=== PATIENT | female | born 1960 | race Caucasian/White ===

== ENCOUNTER 2020-04-30 20:47 | Inpatient (IN) | payer BC, MEDICARE ==
[2020-04-30] MEDS ORDERED: SODIUM CHLORIDE 0.9% 1,000 ML IV STA ×2 (20:49→21:15)
[2020-04-30] MEDS ORDERED: ATROPINE SULFATE 0.1 MG/ML 10ML SYRINGE IV STA (20:50)
--- NOTE | 2020-04-30 20:58 | ED ---
Weakness HPI - General Chief complaint: Recheck/Abnormal Lab/Rx Stated complaint: Low BP, lethargic Time Seen by Provider: 04/30/20 20:48 Source: patient, family, RN notes reviewed, old records reviewed Mode of arrival: ambulatory Limitations: no limitations - History of Present Illness MD Complaint: generalized weakness (lowBP, LowHR), lack of energy -: days(s) Location: generalized Severity: moderate Quality: constant Consistency: constant Improves with: none Worsens with: none Context: history of similar Associated Symptoms: denies other symptoms - Related Data Allergies Allergy/AdvReac Type Severity Reaction Status Date / Time No Known Allergies Allergy Verified 04/30/20 20:53 Review of Systems ROS Statement: Those systems with pertinent positive or pertinent negative responses have been documented in the HPI. ROS Other: All systems not noted in ROS Statement are negative. Past Medical History Additional Past Medical History / Comment(s): low blood pressure History of Any Multi-Drug Resistant Organisms: None Reported Past Surgical History: Adenoidectomy, Tonsillectomy Past Psychological History: Anxiety Smoking Status: Former smoker Past Alcohol Use History: Occasional Past Drug Use History: None Reported General Exam Limitations: no limitations General appearance: alert, in no apparent distress Head exam: Present: atraumatic, normocephalic, normal inspection Eye exam: Present: normal appearance, PERRL, EOMI. Absent: scleral icterus, conjunctival injection, periorbital swelling ENT exam: Present: normal exam, mucous membranes moist Neck exam: Present: normal inspection. Absent: tenderness, meningismus, lymphadenopathy Respiratory exam: Present: normal lung sounds bilaterally. Absent: respiratory distress, wheezes, rales, rhonchi, stridor Cardiovascular Exam: Present: normal rhythm, bradycardia, normal heart sounds. Absent: systolic murmur, diastolic murmur, rubs, gallop, clicks GI/Abdominal exam: Present: soft, normal bowel sounds. Absent: distended, tenderness, guarding, rebound, rigid Extremities exam: Present: normal inspection, full ROM, normal capillary refill. Absent: tenderness, pedal edema, joint swelling, calf tenderness Back exam: Present: normal inspection Neurological exam: Present: alert, oriented X3, CN II-XII intact Psychiatric exam: Present: normal affect, normal mood Skin exam: Present: warm, dry, intact, normal color. Absent: rash Course Vital Signs 04/30/20 04/30/20 04/30/20 20:48 21:23 21:24 Temperature 98 F Pulse Rate 56 L Pulse Rate [ 55 L 56 L Pulse Oximetery ] Respiratory 20 18 18 Rate Blood Pressure 113/73 Blood Pressure 112/75 [Left Arm Sitting] Blood Pressure [Left Arm Standing] Blood Pressure 108/65 [Left Arm Supine] O2 Sat by Pulse 98 99 99 Oximetry 04/30/20 04/30/20 04/30/20 21:26 21:50 21:57 Temperature Pulse Rate 56 L Pulse Rate [ 54 L 57 L Pulse Oximetery ] Respiratory 18 18 Rate Blood Pressure 113/73 Blood Pressure [Left Arm Sitting] Blood Pressure 111/73 [Left Arm Standing] Blood Pressure [Left Arm Supine] O2 Sat by Pulse 99 100 Oximetry EKG Findings - EKG Comments: EKG Findings:: EKG shows sinus bradycardia 54 CA 160 QRS 76 QTc 450 Medical Decision Making - Lab Data Result diagrams: 04/30/20 21:06 04/30/20 21:06 Lab Results 04/30/20 04/30/20 04/30/20 Range/Units 21:06 21:06 21:06 WBC 7.2 (3.8-10.6) k/uL RBC 4.33 (3.80-5.40) m/uL Hgb 13.3 (11.4-16.0) gm/dL Hct 41.8 (34.0-46.0) % MCV 96.6 (80.0-100.0) fL MCH 30.9 (25.0-35.0) pg MCHC 31.9 (31.0-37.0) g/dL RDW 12.8 (11.5-15.5) % Plt Count 242 (150-450) k/uL Neutrophils % 49 % Lymphocytes % 39 % Monocytes % 7 % Eosinophils % 2 % Basophils % 1 % Neutrophils # 3.5 (1.3-7.7) k/uL Lymphocytes # 2.8 (1.0-4.8) k/uL Monocytes # 0.5 (0-1.0) k/uL Eosinophils # 0.2 (0-0.7) k/uL Basophils # 0.1 (0-0.2) k/uL PT 10.2 (9.0-12.0) sec INR 1.0 (<1.2) APTT 19.6 L (22.0-30.0) sec D-Dimer (<0.60) mg/L FEU Sodium 137 (137-145) mmol/L Potassium 4.7 (3.5-5.1) mmol/L Chloride 107 (98-107) mmol/L Carbon Dioxide 20 L (22-30) mmol/L Anion Gap 10 mmol/L BUN 16 (7-17) mg/dL Creatinine 0.96 (0.52-1.04) mg/dL Est GFR (CKD-EPI)AfAm 74 (>60 ml/min/1.73 sqM) Est GFR (CKD-EPI)NonAf 64 (>60 ml/min/1.73 sqM) Glucose 72 L (74-99) mg/dL Plasma Lactic Acid Galileo (0.7-2.0) mmol/L Calcium 9.6 (8.4-10.2) mg/dL Phosphorus 4.8 H (2.5-4.5) mg/dL Magnesium 2.1 (1.6-2.3) mg/dL Total Bilirubin 0.4 (0.2-1.3) mg/dL AST 30 (14-36) U/L ALT 12 (4-34) U/L Alkaline Phosphatase 166 H (38-126) U/L Creatine Kinase 103 (30-135) U/L CK-MB (CK-2) (0.0-2.4) ng/mL Troponin I (0.000-0.034) ng/mL NT-Pro-B Natriuret Pep pg/mL Total Protein 7.2 (6.3-8.2) g/dL Albumin 4.4 (3.5-5.0) g/dL TSH 3.120 (0.465-4.680) mIU/L 04/30/20 04/30/20 04/30/20 Range/Units 21:06 21:06 21:06 WBC (3.8-10.6) k/uL RBC (3.80-5.40) m/uL Hgb (11.4-16.0) gm/dL Hct (34.0-46.0) % MCV (80.0-100.0) fL MCH (25.0-35.0) pg MCHC (31.0-37.0) g/dL RDW (11.5-15.5) % Plt Count (150-450) k/uL Neutrophils % % Lymphocytes % % Monocytes % % Eosinophils % % Basophils % % Neutrophils # (1.3-7.7) k/uL Lymphocytes # (1.0-4.8) k/uL Monocytes # (0-1.0) k/uL Eosinophils # (0-0.7) k/uL Basophils # (0-0.2) k/uL PT (9.0-12.0) sec INR (<1.2) APTT (22.0-30.0) sec D-Dimer (<0.60) mg/L FEU Sodium (137-145) mmol/L Potassium (3.5-5.1) mmol/L Chloride (98-107) mmol/L Carbon Dioxide (22-30) mmol/L Anion Gap mmol/L BUN (7-17) mg/dL Creatinine (0.52-1.04) mg/dL Est GFR (CKD-EPI)AfAm (>60 ml/min/1.73 sqM) Est GFR (CKD-EPI)NonAf (>60 ml/min/1.73 sqM) Glucose (74-99) mg/dL Plasma Lactic Acid Galileo 1.2 (0.7-2.0) mmol/L Calcium (8.4-10.2) mg/dL Phosphorus (2.5-4.5) mg/dL Magnesium (1.6-2.3) mg/dL Total Bilirubin (0.2-1.3) mg/dL AST (14-36) U/L ALT (4-34) U/L Alkaline Phosphatase (38-126) U/L Creatine Kinase (30-135) U/L CK-MB (CK-2) 0.9 (0.0-2.4) ng/mL Troponin I <0.012 (0.000-0.034) ng/mL NT-Pro-B Natriuret Pep 125 pg/mL Total Protein (6.3-8.2) g/dL Albumin (3.5-5.0) g/dL TSH (0.465-4.680) mIU/L 04/30/20 Range/Units 21:06 WBC (3.8-10.6) k/uL RBC (3.80-5.40) m/uL Hgb (11.4-16.0) gm/dL Hct (34.0-46.0) % MCV (80.0-100.0) fL MCH (25.0-35.0) pg MCHC (31.0-37.0) g/dL RDW (11.5-15.5) % Plt Count (150-450) k/uL Neutrophils % % Lymphocytes % % Monocytes % % Eosinophils % % Basophils % % Neutrophils # (1.3-7.7) k/uL Lymphocytes # (1.0-4.8) k/uL Monocytes # (0-1.0) k/uL Eosinophils # (0-0.7) k/uL Basophils # (0-0.2) k/uL PT (9.0-12.0) sec INR (<1.2) APTT (22.0-30.0) sec D-Dimer 0.93 H (<0.60) mg/L FEU Sodium (137-145) mmol/L Potassium (3.5-5.1) mmol/L Chloride (98-107) mmol/L Carbon Dioxide (22-30) mmol/L Anion Gap mmol/L BUN (7-17) mg/dL Creatinine (0.52-1.04) mg/dL Est GFR (CKD-EPI)AfAm (>60 ml/min/1.73 sqM) Est GFR (CKD-EPI)NonAf (>60 ml/min/1.73 sqM) Glucose (74-99) mg/dL Plasma Lactic Acid Galileo (0.7-2.0) mmol/L Calcium (8.4-10.2) mg/dL Phosphorus (2.5-4.5) mg/dL Magnesium (1.6-2.3) mg/dL Total Bilirubin (0.2-1.3) mg/dL AST (14-36) U/L ALT (4-34) U/L Alkaline Phosphatase (38-126) U/L Creatine Kinase (30-135) U/L CK-MB (CK-2) (0.0-2.4) ng/mL Troponin I (0.000-0.034) ng/mL NT-Pro-B Natriuret Pep pg/mL Total Protein (6.3-8.2) g/dL Albumin (3.5-5.0) g/dL TSH (0.465-4.680) mIU/L Disposition Clinical Impression: Bradycardia Disposition: HOME SELF-CARE Condition: Good Instructions (If sedation given, give patient instructions): Bradycardia (ED) Is patient prescribed a controlled substance at d/c from ED?: No Referrals: Efren Belle MD [Primary Care Provider] - 1-2 days
[2020-04-30 21:27] LABS: Basophils # (A) 0.1 k/uL (0-0.2); Basophils % (A) 1 %; Eosinophils # (A) 0.2 k/uL (0-0.7); Eosinophils % (A) 2 %; HCT 41.8 % (34.0-46.0); HGB 13.3 gm/dL (11.4-16.0); Lymphocytes # (A) 2.8 k/uL (1.0-4.8); Lymphocytes % (A) 39 %; MCH 30.9 pg (25.0-35.0); MCHC 31.9 g/dL (31.0-37.0); MCV 96.6 fL (80.0-100.0); Mean Platelet Volume 7.8; Monocytes # (A) 0.5 k/uL (0-1.0); Monocytes % (A) 7 %; Neutrophils # (A) 3.5 k/uL (1.3-7.7); Neutrophils % (A) 49 %; Platelet Count 242 k/uL (150-450); RBC 4.33 m/uL (3.80-5.40); RDW 12.8 % (11.5-15.5); WBC 7.2 k/uL (3.8-10.6)
[2020-04-30 21:37] LABS: Prothrombin Time 10.2 sec (9.0-12.0)
[2020-04-30 21:47] LABS: Partial Thromboplastin Time 19.6 sec (22.0-30.0)
--- NOTE | 2020-04-30 21:47 | XR ---
EXAMINATION TYPE: XR chest 1V portable DATE OF EXAM: 04/30/2020 COMPARISON: NONE HISTORY: Weakness TECHNIQUE: FINDINGS: There is no heart failure nor confluent pneumonic infiltrate. Costophrenic angles are clear . There are chest leads. There is cervical spine fusion surgery. IMPRESSION: No active cardiopulmonary disease.
[2020-04-30 21:53] LABS: Albumin 4.4 g/dL (3.5-5.0); Calcium 9.6 mg/dL (8.4-10.2); Magnesium 2.1 mg/dL (1.6-2.3); Phosphorus 4.8 mg/dL (2.5-4.5); Potassium 4.7 mmol/L (3.5-5.1); Total Bilirubin 0.4 mg/dL (0.2-1.3); Total Protein 7.2 g/dL (6.3-8.2)
[2020-04-30 22:10] LABS: Creatine Kinase MB 0.9 ng/mL (0.0-2.4); Troponin I <0.012 ng/mL (0.000-0.034)
--- NOTE | 2020-04-30 23:13 | CT ---
EXAMINATION TYPE: CT angio chest DATE OF EXAM: 04/30/2020 COMPARISON: None HISTORY: elevated d-dimer Chest pain CT DLP: 484 mGycm Automated exposure control for dose reduction was used. CONTRAST: Performed with IV Contrast, patient injected with 78cc mL of Isovue 370. There are 3-D post processed images. FINDINGS: There is minimal subsegmental atelectasis in the posterior lung connolly. There is no pericardial effus ion. There is no pleural effusion. There is previous surgery at the gastric fundus. There is hiatal hernia. There are no hilar masses. There is no mediastinal adenopathy. Thoracic aorta is intact. There is no aneurysm or dissection. There are no filling defects in the pulmonary arteries. Thoracic spine is intact. IMPRESSION: No evidence of pulmonary embolism. Mild subsegmental atelectasis at the lung bases. Paraesophageal hiatal hernia. Previous gastric surgery.
[2020-04-30] MEDS ORDERED: NITROGLYCERIN SL TABS 0.4 MG TAB SUBLINGUAL PRN (23:42)
[2020-05-01] MEDS: SODIUM CHLORIDE 0.9% 1,000 ML IV SCH ×2 (00:03→11:27)
[2020-05-01 03:18] LABS: Cholesterol 136 mg/dL (<200); HDL Cholesterol 53 mg/dL (40-60); LDL Cholesterol,Calculated 63 mg/dL (0-99); Triglycerides 98 mg/dL (<150)
[2020-05-01 05:01] LABS: Appearance,Urine Clear (Clear); Bilirubin,Urine Negative (Negative); Blood,Urine Negative (Negative); Color,Urine Light Yellow; Glucose,Urine (UA) Negative (Negative); Ketones,Urine Negative (Negative); Leukocyte Esterase,Urine Negative (Negative); Mucus,Urine Rare /hpf; Nitrite,Urine Positive (Negative); Protein,Urine Negative (Negative); Specific Gravity,Urine 1.025 (1.001-1.035); Squamous Epithelial Cell,Urine <1 /hpf (0-4); Urobilinogen,Urine <2.0 mg/dL (<2.0); WBC,Urine 1 /hpf (0-5)
[2020-05-01 08:32] VITALS: BP 99/57; PULSE 51; RESP 12; TEMP 97.9
[2020-05-01] MEDS ORDERED: FLUDROCORTISONE 0.1 MG TAB PO SCH (09:00)
--- NOTE | 2020-05-01 12:53 | P.CRDCN ---
History of Present Illness History of present illness: This is Dr. Ascencio dictating a consult on this patient The patient was interviewed and examined IMPRESSION / ASSESSMENT: Patient admitted with tiredness and fatigue lethargy and documented low blood pressure between 60-80 mmHg and low heart rates in the 40s Recent history of near syncope with profuse sweating nausea and rapid heartbeat, currently wearing an event monitor prescribed by primary care physician Past history of vasovagal syncope and a positive tilt table test Normal cardiac enzymes normal computed tomography scan of the chest, no evidence for pulmonary embolism PLAN: She was observed overnight treated with IV fluids and this morning I start her on Florinef 0.1 mg by mouth daily I have asked her to stop all her other noncardiac medications for now I will see her again in about 2 weeks and she will go home today HPI Patient was tilted daughter yesterday she was fatigued and lethargic and not feeling well. Her blood pressure was very low initially in the mid 80s and then subsequently 60 mmHg. Heart rate was in the 40s That is when the ambulance was called and she came to the emergency room About a week back she is walking in the grocery store and she had near syncope nausea sweating, profuse sweats along with a rapid heartbeat Watch indicated heart rate was about 100 beats a minute She now is wearing an event monitor prescribed by primary care physician ROS: No fever chills or rigors, no cough, phlegm or expectoration, no nausea, vomiting or diarrhea, no hematuria, dysuria, no musculoskeletal complaints, no strokes or seizures, no skin lesions. EXAMINATION: Min she came in to the ER her blood pressure was normal she was not orthostatic and her heart rates in the 50s Heart rates up in the normal range Lowest blood pressure 99/57 mmHg afebrile Breath sounds are clear no rhonchi no crackles Normal heart sounds normal S1 normal S2 Abdomen is soft nontender Extended is warm no edema REVIEW OF LABS, ECG & MEDICAL DATA Hemoglobin 13.3, d-dimer 0.93 Sodium 137 potassium 4.7 BUN 16 creatinine 0.96 Normal troponins 3 Mildly elevated alkaline phosphatase Medications reviewed. No cardiac medications Midrin discontinued recently Past Medical History Additional Past Medical History / Comment(s): low blood pressure History of Any Multi-Drug Resistant Organisms: None Reported Past Surgical History: Adenoidectomy, Bariatric Surgery, Tonsillectomy Past Anesthesia/Blood Transfusion Reactions: No Reported Reaction Past Psychological History: Anxiety Smoking Status: Former smoker Past Alcohol Use History: Occasional Past Drug Use History: None Reported - Past Family History Father Family Medical History: Cancer Medications and Allergies Allergies Allergy/AdvReac Type Severity Reaction Status Date / Time No Known Allergies Allergy Verified 04/30/20 20:53 Physical Exam Vitals: Vital Signs Temp Pulse Pulse Resp BP BP BP 05/01/20 08:00 97.9 F 51 L 12 05/01/20 04:00 97.6 F 57 L 16 05/01/20 00:35 98.2 F 50 L 18 05/01/20 00:30 58 L 16 111/65 05/01/20 00:00 57 L 18 115/74 04/30/20 23:30 60 16 123/79 04/30/20 21:57 57 L 04/30/20 21:50 56 L 18 113/73 04/30/20 21:26 54 L 18 111/73 04/30/20 21:24 56 L 18 112/75 04/30/20 21:23 55 L 18 04/30/20 20:48 98 F 56 L 20 113/73 BP BP Pulse Ox 05/01/20 08:00 99/57 96 05/01/20 04:00 124/73 95 05/01/20 00:35 114/75 99 05/01/20 00:30 99 05/01/20 00:00 99 04/30/20 23:30 97 04/30/20 21:57 04/30/20 21:50 100 04/30/20 21:26 99 04/30/20 21:24 99 04/30/20 21:23 108/65 99 04/30/20 20:48 98 Intake and Output 04/30/20 05/01/20 05/01/20 22:59 06:59 14:59 Other: Voiding Method Bedside Commode Weight 81.647 kg 89.63 kg Results 04/30/20 21:06 04/30/20 21:06 Cardiac Enzymes 04/30/20 04/30/20 05/01/20 Range/Units 21:06 21:06 02:45 AST 30 (14-36) U/L CK-MB (CK-2) 0.9 (0.0-2.4) ng/mL Troponin I <0.012 <0.012 (0.000-0.034) ng/mL 05/01/20 Range/Units 09:08 AST (14-36) U/L CK-MB (CK-2) (0.0-2.4) ng/mL Troponin I <0.012 (0.000-0.034) ng/mL Coagulation 04/30/20 Range/Units 21:06 PT 10.2 (9.0-12.0) sec APTT 19.6 L (22.0-30.0) sec Lipids 05/01/20 Range/Units 02:45 Triglycerides 98 (<150) mg/dL Cholesterol 136 (<200) mg/dL HDL Cholesterol 53 (40-60) mg/dL CBC 04/30/20 Range/Units 21:06 WBC 7.2 (3.8-10.6) k/uL RBC 4.33 (3.80-5.40) m/uL Hgb 13.3 (11.4-16.0) gm/dL Hct 41.8 (34.0-46.0) % Plt Count 242 (150-450) k/uL Comprehensive Metabolic Panel 04/30/20 Range/Units 21:06 Sodium 137 (137-145) mmol/L Potassium 4.7 (3.5-5.1) mmol/L Chloride 107 (98-107) mmol/L Carbon Dioxide 20 L (22-30) mmol/L BUN 16 (7-17) mg/dL Creatinine 0.96 (0.52-1.04) mg/dL Glucose 72 L (74-99) mg/dL Calcium 9.6 (8.4-10.2) mg/dL AST 30 (14-36) U/L ALT 12 (4-34) U/L Alkaline Phosphatase 166 H (38-126) U/L Total Protein 7.2 (6.3-8.2) g/dL Albumin 4.4 (3.5-5.0) g/dL Current Medications Generic Name Dose Route Start Last Admin Trade Name Freq PRN Reason Stop Dose Admin Fludrocortisone Acetate 0.1 mg 05/01/20 09:00 05/01/20 09:42 Florinef PO 0.1 mg DAILY NICO Administration Sodium Chloride 1,000 mls @ 100 mls/hr 04/30/20 23:45 05/01/20 11:27 Saline 0.9% IV Not Given .Q10H NICO Nitroglycerin 0.4 mg 04/30/20 23:42 Nitrostat SUBLINGUAL Q5M PRN Chest Pain Intake and Output 04/30/20 05/01/20 05/01/20 22:59 06:59 14:59 Other: Voiding Method Bedside Commode Weight 81.647 kg 89.63 kg 04/30/20 21:06 04/30/20 21:06
[2020-05-01] MEDS ORDERED: tiZANidine 4 MG TAB PO PRN (14:43)
[2020-05-01] MEDS ORDERED: traMADol 50 MG TAB PO PRN (14:43)
[2020-05-01] MEDS ORDERED: ALPRAZolam 0.5 MG TAB PO PRN (14:43)
[2020-05-01] MEDS ORDERED: ESCITALOPRAM 20 MG TAB PO SCH (14:45)
[2020-05-01] MEDS ORDERED: PANTOPRAZOLE 40 MG TABLET PO SCH (14:45)
--- NOTE | 2020-05-01 16:04 | P.HPIM ---
History of Present Illness H&P Date: 05/01/20 Chief Complaint: Tired History of presenting complaint: This is a pleasant 59-year-old patient of Dr. caro. Chronic stable medical conditions include anxiety, depression, chronic muscle aches and pains insomnia. GERD. Patient does have a event monitor prescribed by the family doctor. Seem she's had vasovagal syncope and a positive tilt table in the past. He had an episodes having low blood pressure and describes a heart rate to be low-dose BiPAP and what she wears. Telemetry did not show any evidence of dropping the heart rate below 50. This was reviewed by supervisor lead burning Dr. Layo Ascencio. No chest pain no palpitation. Patient just tell he feels tired and lethargic. Also got a week ago she was walking in the grocery store had a near syncope attack with nausea sweating profuse sweating. As a rapid heartbeat. Apple watch showed heart rate of 100. No fever and chills. She does take a Xanax sparingly. Takes 5 mg of Ambien at night. Sometimes. Also uses Ultram occasionally. Review of systems: GEN.: Tired EYES: None HEENT: None NECK: None RESPIRATORY: None CARDIOVASCULAR: As above GASTROINTESTINAL: None GENITOURINARY: None MUSCULOSKELETAL: [Chronic aches and pains in the joints LYMPHATICS: None HEMATOLOGICAL: None PSYCHIATRY: Anxious Past medical history to include: Anxiety, depression, muscle aches and pains, insomnia, GERD Social history: Does not smoke or drink alcohol. Lives with her . Denies use of any recreational drugs Physical examination: VITAL SIGNS: 98, 56, 20, 113/73, 98% room air GENERAL: BMI 32.9, laying in bed slightly anxious. EYES: Pupils equal. Conjunctiva normal. HEENT: External appearance of nose and ears normal, oral cavity grossly normal. NECK: JVD not raised; masses not palpable. HEART: First and second heart sounds are normal; no edema. LUNGS: Respiratory rate normal; clear to auscultation. ABDOMEN: Soft, nontender, liver spleen not palpable, no masses palpable. PSYCH: [Alert and oriented x3; mood and affect anxious l. NEUROLOGICAL: Cranial nerves grossly intact; no facial asymmetry, power and sensation grossly intact. LYMPHATICS: No lymph nodes palpable in the axilla and neck INVESTIGATIONS, reviewed in the clinical context: White count 7.2 hemoglobin 13.3 platelets 242 potassium 4.7 creatinine 0.96 TSH 3.1 Troponin I 3 negative LDL 63 proBNP 125 Serum alcohol less than 10 EKG testing personally reviewed by me shows normal sinus bradycardia and flipped T waves in anterior leads Chest CTA-negative for PE. Paraesophageal hiatal hernia Chest x-ray film personally reviewed by me-portable borderline cardiomegaly lung feels clear Assessment: -This is a patient been having episodes of hot flashes some palpitation and near syncope. Apple watch has showed heart rates are decreased to the 40s and 30s. No such episode was noted in the hospital. Patient already has a event monitor through his family doctor. Apparently patient had a positive tilt table test as an outpatient. The results are not available in our system. Patient does have underlying anxiety and depression. -Anxiety depression otherwise specified -Chronic insomnia -Chronic arthralgia being worked up as an outpatient. Plan: Patient started on Florinef by Dr. Ascencio. Telemetry patient is being monitored. Did discuss with the patient at length to use her Ambien Xanax and Ultram SPARINGLY. She is due to see her orthopedic physician as an outpatient. Continue with her event monitor. Activity as tolerated. NEUROLOGICAL: Insomnia Past Medical History Additional Past Medical History / Comment(s): low blood pressure History of Any Multi-Drug Resistant Organisms: None Reported Past Surgical History: Adenoidectomy, Bariatric Surgery, Tonsillectomy Past Anesthesia/Blood Transfusion Reactions: No Reported Reaction Past Psychological History: Anxiety Smoking Status: Former smoker Past Alcohol Use History: Occasional Past Drug Use History: None Reported - Past Family History Father Family Medical History: Cancer Medications and Allergies Home Medications Medication Instructions Recorded Confirmed Type ALPRAZolam [Xanax] 0.5 mg PO DAILY PRN 05/01/20 05/01/20 History Ergocalciferol [Vitamin D2 50,000 unit PO Q7D 05/01/20 05/01/20 History (ROCHELLE)] Escitalopram [Lexapro] 20 mg PO DAILY 05/01/20 05/01/20 History Fludrocortisone [Florinef] 0.1 mg PO DAILY #30 tab 05/01/20 Rx Omeprazole [PriLOSEC] 20 mg PO DAILY 05/01/20 05/01/20 History Zolpidem Tartrate [Ambien] 5 mg PO HS #0 05/01/20 05/01/20 Rx tiZANidine HCL [Zanaflex] 4 mg PO BID PRN 05/01/20 05/01/20 History traMADol HCL [Ultram] 50 mg PO DAILY PRN 05/01/20 05/01/20 History Allergies Allergy/AdvReac Type Severity Reaction Status Date / Time No Known Allergies Allergy Verified 04/30/20 20:53 Physical Exam Vitals: Vital Signs Temp Pulse Pulse Resp BP BP BP 05/01/20 08:00 97.9 F 51 L 12 05/01/20 04:00 97.6 F 57 L 16 05/01/20 00:35 98.2 F 50 L 18 05/01/20 00:30 58 L 16 111/65 05/01/20 00:00 57 L 18 115/74 04/30/20 23:30 60 16 123/79 04/30/20 21:57 57 L 04/30/20 21:50 56 L 18 113/73 04/30/20 21:26 54 L 18 111/73 04/30/20 21:24 56 L 18 112/75 04/30/20 21:23 55 L 18 04/30/20 20:48 98 F 56 L 20 113/73 BP BP Pulse Ox 05/01/20 08:00 99/57 96 05/01/20 04:00 124/73 95 05/01/20 00:35 114/75 99 05/01/20 00:30 99 05/01/20 00:00 99 04/30/20 23:30 97 04/30/20 21:57 04/30/20 21:50 100 04/30/20 21:26 99 04/30/20 21:24 99 04/30/20 21:23 108/65 99 04/30/20 20:48 98 Intake and Output 04/30/20 05/01/20 05/01/20 22:59 06:59 14:59 Other: Voiding Method Bedside Commode Weight 81.647 kg 89.63 kg Results CBC & Chem 7: 04/30/20 21:06 04/30/20 21:06 Labs: Abnormal Lab Results - Last 24 Hours (Table) 04/30/20 04/30/20 04/30/20 Range/Units 21:06 21:06 21:06 APTT 19.6 L (22.0-30.0) sec D-Dimer 0.93 H (<0.60) mg/L FEU Carbon Dioxide 20 L (22-30) mmol/L Glucose 72 L (74-99) mg/dL Phosphorus 4.8 H (2.5-4.5) mg/dL Alkaline Phosphatase 166 H (38-126) U/L Urine Nitrite (Negative) Urine Mucus (None) /hpf 04/30/20 Range/Units 21:46 APTT (22.0-30.0) sec D-Dimer (<0.60) mg/L FEU Carbon Dioxide (22-30) mmol/L Glucose (74-99) mg/dL Phosphorus (2.5-4.5) mg/dL Alkaline Phosphatase (38-126) U/L Urine Nitrite Positive H (Negative) Urine Mucus Rare H (None) /hpf Thrombosis Risk Factor Assmnt - Choose All That Apply Each Risk Factor Represents 2 Points: Age 61-74 years Thrombosis Risk Factor Assessment Total Risk Factor Score: 2 Thrombosis Risk Factor Assessment Level: Low Risk
--- NOTE | 2020-05-01 16:07 | P.DS ---
Providers Date of admission: 05/01/20 12:41 Expected date of discharge: 05/01/20 Attending physician: Woodrow Chapman Consults: 04/30/20 23:42 Consult Physician Urgent Consulting Provider: Milo Ascencio Consult Reason/Comments: known Do you want consulting provider notified?: Yes Primary care physician: [facility] Course: Chief Complaint: Tired History of presenting complaint: This is a pleasant 59-year-old patient of Dr. belle. Chronic stable medical conditions include anxiety, depression, chronic muscle aches and pains insomnia. GERD. Patient does have a event monitor prescribed by the family doctor. Seem she's had vasovagal syncope and a positive tilt table in the past. He had an episodes having low blood pressure and describes a heart rate to be low-dose BiPAP and what she wears. Telemetry did not show any evidence of dropping the heart rate below 50. This was reviewed by [employer] Dr. Layo Ascencio. No chest pain no palpitation. Patient just tell he feels tired and lethargic. Also got a week ago she was walking in the grocery store had a near syncope attack with nausea sweating profuse sweating. As a rapid heartbeat. Apple watch showed heart rate of 100. No fever and chills. She does take a Xanax sparingly. Takes 5 mg of Ambien at night. Sometimes. Also uses Ultram occasionally. Patient seen by Dr. Layo Ascencio from cardiology. Started on Florinef. Patient was told to use her Xanax Ultram sparingly. Patient uses her Ambien 5 mg at night occasionally. Continue with Holter monitor. Cleared by cardiology to be discharged. Discussed with the patient. Consultation: Dr. Layo Ascencio from cardiology Physical examination: VITAL SIGNS: 97.6, 57, 16, 124/73, 95% on room air GENERAL: BMI 32.9, propped up in bed, slightly anxious EYES: Pupils equal. Conjunctiva normal. HEENT: External appearance of nose and ears normal, oral cavity grossly normal. NECK: JVD not raised; masses not palpable. HEART: First and second heart sounds are normal; no edema. LUNGS: Respiratory rate normal; clear to auscultation. ABDOMEN: Soft, nontender, liver spleen not palpable, no masses palpable. PSYCH: [Alert and oriented x3; mood and affect anxious l. INVESTIGATIONS, reviewed in the clinical context: White count 7.2 hemoglobin 13.3 platelets 242 potassium 4.7 creatinine 0.96 TSH 3.1 Troponin I 3 negative LDL 63 proBNP 125 Serum alcohol less than 10 EKG testing personally reviewed by me shows normal sinus bradycardia and flipped T waves in anterior leads Chest CTA-negative for PE. Paraesophageal hiatal hernia Chest x-ray film personally reviewed by me-portable borderline cardiomegaly lung feels clear Assessment: -This is a patient been having episodes of hot flashes some palpitation and near syncope. Apple watch has showed heart rates are decreased to the 40s and 30s. No such episode was noted in the hospital. Patient already has a event monitor through his family doctor. Apparently patient had a positive tilt table test as an outpatient. The results are not available in our system. Patient does have underlying anxiety and depression. -Anxiety depression otherwise specified -Chronic insomnia -Chronic arthralgia being worked up as an outpatient. -Asymptomatic bacteriuria- not treated Disposition: Home Patient Condition at Discharge: Stable Plan - Discharge Summary Discharge Rx Participant: No New Discharge Prescriptions: New Fludrocortisone [Florinef] 0.1 mg PO DAILY #30 tab Continue Ergocalciferol [Vitamin D2 (DRISDOL)] 50,000 unit PO Q7D traMADol HCL [Ultram] 50 mg PO DAILY PRN PRN Reason: Pain tiZANidine HCL [Zanaflex] 4 mg PO BID PRN PRN Reason: Muscle Spasm Escitalopram [Lexapro] 20 mg PO DAILY ALPRAZolam [Xanax] 0.5 mg PO DAILY PRN PRN Reason: Anxiety Omeprazole [PriLOSEC] 20 mg PO DAILY Changed Zolpidem Tartrate [Ambien] 5 mg PO HS #0 Discharge Medication List ALPRAZolam [Xanax] 0.5 mg PO DAILY PRN 05/01/20 [History] Ergocalciferol [Vitamin D2 (DRISDOL)] 50,000 unit PO Q7D 05/01/20 [History] Escitalopram [Lexapro] 20 mg PO DAILY 05/01/20 [History] Fludrocortisone [Florinef] 0.1 mg PO DAILY #30 tab 05/01/20 [Rx] Omeprazole [PriLOSEC] 20 mg PO DAILY 05/01/20 [History] Zolpidem Tartrate [Ambien] 5 mg PO HS #0 05/01/20 [Rx] tiZANidine HCL [Zanaflex] 4 mg PO BID PRN 05/01/20 [History] traMADol HCL [Ultram] 50 mg PO DAILY PRN 05/01/20 [History] Follow up Appointment(s)/Referral(s): Milo Ascencio MD [STAFF PHYSICIAN] - 1 Week Efren Belle MD [Primary Care Provider] - 1-2 days Patient Instructions/Handouts: Bradycardia (ED) Activity/Diet/Wound Care/Special Instructions: PATIENT HAS BEEN ADVISED PER DR. ASCENCIO (CARDIOLOGY) TO REFRAIN FROM TAKING ANY MUSCLE RELAXERS, PAIN MEDICATIONS, AND ANTI-ANXIETY MEDICATIONS. FOLLOW UP WITH DR. ASCENCIO IN A WEEK. CAN CONTINUE WITH PRILOSEC, AMBIEN AND VITAMINS CONTINUE WITH THE HALTER MONITOR BEFORE AND FOLLOW UP WITH DR. SHEETS HIGH SODIUM DIET Discharge Disposition: HOME SELF-CARE
[2020-05-01] MEDS ORDERED: ZOLPIDEM 10 MG TAB PO PRN (21:00)
== END 2020-05-01 15:47 | disposition home or self-care (01) | DRG 312 ==
LOC: EC 20:47 → 1SOBS 23:43 → OBSVTOIN 05-01 12:41
PROVIDERS: ADMIT Hospitalist; ATTEND Hospitalist
DX: R55 Syncope and collapse (principal); R00.1 Bradycardia, unspecified; F41.8 Other specified anxiety disorders; Z11.59 Encounter for screening for other viral diseases; F51.04 Psychophysiologic insomnia; R82.71 Bacteriuria; N95.1 Menopausal and female climacteric states; K21.9 Gastro-esophageal reflux disease without esophagitis; M25.50 Pain in unspecified joint; Z87.891 Personal history of nicotine dependence; Z79.899 Other long term (current) drug therapy; Z98.84 Bariatric surgery status; Z80.9 Family history of malignant neoplasm, unspecified
CPT/HCPCS: 36415; 71045; 71275; 80053; 80061; 80320; 81001; 82550; 82553; 83605; 83735; 83880; 84100; 84443; 84484; 85025; 85379; 85610; 85730; 93005; 96361; 96374; 99285